=== PATIENT | female | born 2000 | race Two or more races ===

== ENCOUNTER 2020-03-19 16:21 | Emergency (ER) | payer OTHER ==
[~2020-03-19] VITALS: Ht 157.5 cm; Wt 58.1 kg
[2020-03-19 16:26] VITALS: BP 144/86
[2020-03-19] MEDS ORDERED: ACETAMINOPHEN 500 MG TAB PO ONE (17:45)
== END 2020-03-19 18:07 | disposition home or self-care (01) ==
LOC: ER 16:24
DX: O9A.212 Injury, poisoning and certain other consequences of external causes complicating pregnancy, second trimester (principal); S00.03XA Contusion of scalp, initial encounter; S00.83XA Contusion of other part of head, initial encounter; S00.431A Contusion of right ear, initial encounter; Z3A.14 14 weeks gestation of pregnancy; W19.XXXA Unspecified fall, initial encounter; Y93.89 Activity, other specified; Y92.89 Other specified places as the place of occurrence of the external cause; Y99.8 Other external cause status
CPT/HCPCS: 70450